=== PATIENT | male | born 1975 ===

== ENCOUNTER 2018-09-10 13:30 | Inpatient (IN) | payer OTHER ==
[~2018-09-10] VITALS: Ht 175.3 cm; Wt 88.5 kg
[2018-09-10] MEDS ORDERED: COZAAR50 MG PO (14:59)
[2018-09-17] MEDS ORDERED: PERCOCET 5-3251 EACH PO (12:46)
== END 2018-09-17 13:09 | disposition home or self-care (01) | DRG 331 ==
LOC: SURG 13:30 → O/R 09-14 07:05 → SURG 09-14 11:30
PROVIDERS: ADMIT Surgery
PROC: 0DJD8ZZ Inspection of Lower Intestinal Tract, Via Natural or Artificial Opening Endoscopic (ICD-10-PCS; 2018-09-14)
PROC: 0DTN4ZZ Resection of Sigmoid Colon, Percutaneous Endoscopic Approach (ICD-10-PCS; principal; 2018-09-14 11:30)
DX: K57.32 Diverticulitis of large intestine without perforation or abscess without bleeding (principal); I10 Essential (primary) hypertension